=== PATIENT | female | born 1980 | race Two or more races ===

== ENCOUNTER 2018-07-30 12:59 | Outpatient (CLI) | payer OTHER ==
[~2018-07-30 12:59] MED LIST: PRENATAL 19 TAB1 TAB PO; SYNTHROID88 MCG PO
== END 2018-07-30 13:12 | disposition home or self-care (01) ==
LOC: SONOGRAMA 12:59 → MAMO-SONO 13:15
DX: E04.1 Nontoxic single thyroid nodule (principal)

== ENCOUNTER 2019-03-12 08:25 | Emergency (ER) | payer OTHER ==
[~2019-03-12] VITALS: Ht 149.9 cm; Wt 47.6 kg
[2019-03-12] MEDS ORDERED: INTESTINEX680 M1 PO (17:25)
[2019-03-12] MEDS ORDERED: LEVSIN/SL0.125 MG SL (17:25)
== END 2019-03-12 17:53 | disposition home or self-care (01) ==
LOC: ER 08:25
DX: K52.9 Noninfective gastroenteritis and colitis, unspecified (principal); R10.31 Right lower quadrant pain

== ENCOUNTER 2022-04-19 07:25 | Emergency (ER) | payer OTHER ==
[~2022-04-19] VITALS: Ht 149.9 cm; Wt 47.2 kg
[~2022-04-19 07:25] MED LIST changes: +INTESTINEX680 M1 PO; +LEVSIN/SL0.125 MG SL
[2022-04-19] MEDS ORDERED: SYNTHROID88 MCG PO (07:39)
== END 2022-04-19 11:12 | disposition home or self-care (01) ==
LOC: ER 07:25
DX: J03.90 Acute tonsillitis, unspecified (principal); R09.1 Pleurisy

== ENCOUNTER 2022-05-12 22:48 | Emergency (ER) | payer OTHER ==
[~2022-05-12] VITALS: Ht 149.9 cm; Wt 47.6 kg
== END 2022-05-13 03:44 | disposition home or self-care (01) ==
LOC: ER 22:48
DX: R07.82 Intercostal pain (principal)

== ENCOUNTER 2024-12-28 05:47 | Emergency (ER) | payer OTHER ==
[~2024-12-28] VITALS: Ht 149.9 cm; Wt 48.1 kg
[~2024-12-28 05:47] MED LIST changes: +DICLOFENAC SODI75 MG PO
[2024-12-28 05:56] VITALS: BP 90/60; O2SAT 99
[2024-12-28] MEDS ORDERED: ORPHENADRINE CITRATE 30 MG/ML AMPUL ONE (06:25)
[2024-12-28] MEDS ORDERED: ORPHENADRINE CITRATE 30 MG/ML AMPUL IM STA (06:25)
[2024-12-28] MEDS ORDERED: KETOROLAC TROMETHAMINE 60 MG VIAL IM STA (06:25)
[2024-12-28] MEDS ORDERED: KETOROLAC TROMETHAMINE 60 MG VIAL IM ONE (06:26)
[2024-12-28] MEDS ORDERED: AZITHROMYCIN 500 MG VIAL IV ONE ×2 (10:07→10:15)
[2024-12-28 10:41] LABS: ABG PH 7.434 (7.35-7.45); ABG PO2 85.9 mmHg (80-100); BICARBONATE 26.4 mmol/l (23-25)
[2024-12-28 10:43] LABS: o2 21 %
[2024-12-28 10:51] LABS: ALT/SGPT 22.0 U/L (12-78); AST/SGOT 16.0 U/L (15-37); BILIRUBIN TOTAL 0.35 mg/dL (0.3-1.2); BUN CREA RATIO 29.0 (7.0-25.0); CREATININE SERUM 0.48 mg/dL (0.55-1.02); GFR 139.86; GLOBULINA 4.6 G/DL (2.4-3.5); GLUCOSE FASTING 79.0 mg/dL (65-100); OSMOLALITY SERUM 279.0 MOSM/KG (275-295)
[2024-12-28 11:18] LABS: COVID-19 AG NEGATIVE (NEGATIVE)
[2024-12-28 11:38] LABS: BASO % 0.4 % (0.1-1.2); EOS # 0.13 (0.04-0.54); EOS % 1.5 % (0.7-7.0); LYMPH # 1.57 (1.18-3.74); LYMPH % 18.6 % (19.3-53.1); MEAN PLATELET VOLUME 10.00 fl (9.4-12.4); MONO # 0.85 (0.24-0.82); MONO % 10.1 % (4.7-12.5); NEUT # 5.81 (1.56-6.13); NEUT % 69.0 % (34.0-71.1); RED CELL DISTRIBUTION WIDTH 12.0 % (11.6-14.4)
== END 2024-12-28 13:26 | disposition home or self-care (01) ==
LOC: ER 05:50
PROVIDERS: General Practice
DX: M94.0 Chondrocostal junction syndrome [Tietze] (principal); M62.838 Other muscle spasm; E03.8 Other specified hypothyroidism; C34.90 Malignant neoplasm of unspecified part of unspecified bronchus or lung; Z20.822 Contact with and (suspected) exposure to COVID-19; M50.322 Other cervical disc degeneration at C5-C6 level